=== PATIENT | male | born 1975 | race American Indian/Alaskan Native ===

== ENCOUNTER 2019-12-16 17:45 | Emergency (ER) | payer OTHER ==
[2019-12-16 18:01] VITALS: BP 144/92
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
== END 2019-12-16 20:11 | disposition home or self-care (01) ==
LOC: ED 17:45
DX: M54.2 Cervicalgia (principal); M54.89 Other dorsalgia; Z87.891 Personal history of nicotine dependence; V89.2XXA Person injured in unspecified motor-vehicle accident, traffic, initial encounter; Y93.89 Activity, other specified; Y92.410 Unspecified street and highway as the place of occurrence of the external cause; Y99.8 Other external cause status
CPT/HCPCS: 99282